=== PATIENT | female | born 1955 | race American Indian/Alaskan Native ===

== ENCOUNTER 2017-01-21 22:25 | Emergency (ER) | payer BC ==
--- NOTE | 2017-01-22 02:12 | Emergency Department Report ---
- General Chief complaint: Skin Rash Stated complaint: FACIAL RASH Time Seen by Provider: 01/22/17 01:59 Source: patient Mode of arrival: Ambulatory Limitations: No Limitations - History of Present Illness Initial comments: This is a 61-year-old female nontoxic, well nourished in appearance, no acute signs of distress that presents to the ED complaining of facial rash and back 2 weeks. Associated symptoms includes itching. Patient also complains of a boil to back 3 weeks. Patient denies any pus, drainage, fever, chills, stiff neck, abnormal gait, headache, nausea, vomiting, chest pain or shortness of breath. Stated rash has occurred so she took lisinopril and has been seen with her primary care doctor that prescribed hydrocortisone cream with no relief. Patient states allergies to ibuprofen and lisinopril. History of hypertension. MD complaint: abscess/boil -: Gradual, week(s) (3) Tetanus Up to Date: unsure Location: back Severity scale (0 -10): 0 Consistency: constant Improves with: none Worsens with: none Context: none Associated symptoms: denies other symptoms Treatments Prior to Arrival: OTC topical medication (hydrocortisone) - Related Data Previous Rx's Medication Instructions Recorded Last Taken Type Acetaminophen [Tylenol Arthritis] 650 mg PO Q6H #20 tablet.er 01/22/17 Unknown Rx Sulfamethoxazole/Trimethoprim 1 each PO BID #14 tablet 01/22/17 Unknown Rx [Bactrim DS TAB] Allergies Allergy/AdvReac Type Severity Reaction Status Date / Time ibuprofen [From Motrin] Allergy Angioedema Verified 01/21/17 23:54 lisinopril Allergy Angioedema Verified 01/21/17 23:53 Abscess Boil HPI - HPI Chief Complaint: Skin Rash Stated Complaint: FACIAL RASH Time Seen by Provider: 01/22/17 01:59 Home Medications: Previous Rx's Medication Instructions Recorded Last Taken Type Acetaminophen [Tylenol Arthritis] 650 mg PO Q6H #20 tablet.er 01/22/17 Unknown Rx Sulfamethoxazole/Trimethoprim 1 each PO BID #14 tablet 01/22/17 Unknown Rx [Bactrim DS TAB] Allergies/Adverse Reactions: Allergies Allergy/AdvReac Type Severity Reaction Status Date / Time ibuprofen [From Motrin] Allergy Angioedema Verified 01/21/17 23:54 lisinopril Allergy Angioedema Verified 01/21/17 23:53 ED Review of Systems ROS: Stated complaint: FACIAL RASH Other details as noted in HPI Constitutional: denies: chills, fever Eyes: denies: eye pain, eye discharge, vision change ENT: denies: ear pain, throat pain Respiratory: denies: cough, shortness of breath, wheezing Cardiovascular: denies: chest pain, palpitations Endocrine: no symptoms reported Gastrointestinal: denies: abdominal pain, nausea, diarrhea Genitourinary: denies: urgency, dysuria, discharge Musculoskeletal: denies: back pain, joint swelling, arthralgia Skin: rash, pruritus. denies: lesions Neurological: denies: headache, weakness, paresthesias Psychiatric: denies: anxiety, depression Hematological/Lymphatic: denies: easy bleeding, easy bruising ED Past Medical Hx - Past Medical History Previous Medical History?: Yes Hx Hypertension: Yes - Surgical History Past Surgical History?: No - Social History Smoking Status: Current Every Day Smoker Substance Use Type: None - Medications Home Medications: Home Medications Medication Instructions Recorded Confirmed Last Taken Type Acetaminophen [Tylenol Arthritis] 650 mg PO Q6H #20 tablet.er 01/22/17 Unknown Rx Sulfamethoxazole/Trimethoprim 1 each PO BID #14 tablet 01/22/17 Unknown Rx [Bactrim DS TAB] ED Physical Exam - General Limitations: No Limitations General appearance: alert, in no apparent distress - Head Head exam: Present: atraumatic, normocephalic, normal inspection - Eye Eye exam: Present: normal appearance, PERRL, EOMI. Absent: scleral icterus, conjunctival injection, nystagmus, periorbital swelling, periorbital tenderness Pupils: Present: normal accommodation - ENT ENT exam: Present: normal exam, normal orophraynx, mucous membranes moist, TM's normal bilaterally, normal external ear exam - Neck Neck exam: Present: normal inspection, full ROM. Absent: tenderness, meningismus, lymphadenopathy, thyromegaly - Respiratory Respiratory exam: Present: normal lung sounds bilaterally. Absent: respiratory distress, wheezes, rales, rhonchi, stridor, chest wall tenderness, accessory muscle use, decreased breath sounds, prolonged expiratory - Cardiovascular Cardiovascular Exam: Present: regular rate, normal rhythm, normal heart sounds. Absent: bradycardia, tachycardia, irregular rhythm, systolic murmur, diastolic murmur, rubs, gallop - GI/Abdominal GI/Abdominal exam: Present: soft, normal bowel sounds. Absent: distended, tenderness, guarding, rebound, rigid, diminished bowel sounds - Rectal Rectal exam: Present: deferred - Extremities Exam Extremities exam: Present: normal inspection, full ROM, normal capillary refill. Absent: tenderness, pedal edema, joint swelling, calf tenderness - Back Exam Back exam: Present: normal inspection, full ROM, other (6 cm x 6 cm boil noted to the right back region. Positive induration. Positive fluctuance. No posterior drainage is noted. Nontender to touch. No surrounding cellulitis noted.). Absent: tenderness, CVA tenderness (R), CVA tenderness (L), muscle spasm, paraspinal tenderness, vertebral tenderness, rash noted - Neurological Exam Neurological exam: Present: alert, oriented X3, CN II-XII intact, normal gait, reflexes normal - Psychiatric Psychiatric exam: Present: normal affect, normal mood - Skin Skin exam: Present: warm, dry, intact, normal color, rash. Absent: cyanosis, diaphoretic, erythema - Expanded Skin Exam Expanded Type of lesion: Present: rash Distribution of rash: face Description of rash: Present: erythematous, macular, papular, urticarial. Absent: vesicular, blisters, confluent, bullous, petechial, purpuic, crusting, discharge, fluctuant, indurated 1 - Abscess ED Course Vital Signs 01/21/17 23:54 Temperature 99.2 F Pulse Rate 95 H Respiratory 20 Rate Blood Pressure 179/96 O2 Sat by Pulse 100 Oximetry - Reevaluation(s) Reevaluation #1: 01/22/17 02:13 Patient is speaking full sentences with no signs of distress noted. - I & D Right Back Type of Procedure: Complex Site: right back Blade Size: 11 I & D Procedure: betadine prep, sterile drapes applied, sterile dressing applied Progress: Under sterile field, I used Betadine to cleanse the area. I then used 2% lidocaine with epi 1-200,000 with 25-gauge 5/8 needle to inject area for anesthetic purposes. Total volume injected 3 mL. I then used an 11 blade to make a 1 cm incision. About 40 mL of purulent drainage has been noted. I then used a hemostat to break the abscess formation. I then used sterile 0.9% normal saline flush to flush the wound with total volume of 40 mL used. I then put a 1/4 iodoform packing to the incision. A sterile 4 x 4 with tape has been applied as dressing. Bleeding is under control. Patient tolerated the procedure well with no signs of distress noted. Critical care attestation.: If time is entered above; I have spent that time in minutes in the direct care of this critically ill patient, excluding procedure time. ED Disposition Clinical Impression: Abscess Disposition: - TO HOME OR SELFCARE Is pt being admited?: No Does the pt Need Aspirin: No Condition: Stable Instructions: Sulfamethoxazole/Trimethoprim (By mouth), Abscess (ED) Additional Instructions: Follow-up with a primary care doctor in 3-5 days or symptoms worsen and continue return to emergency room. Return in 2 days to the emergency room to remove your packing and reassessment of the wound. Take full course of antibiotics that was prescribed. Prescriptions: Acetaminophen [Tylenol Arthritis] 650 mg PO Q6H #20 tablet.er Sulfamethoxazole/Trimethoprim [Bactrim DS TAB] 1 each PO BID #14 tablet Referrals: PRIMARY MD VIOLET [Referring] - 3-5 Days RAE ANDREWS MD [Staff Physician] - 3-5 Days [facility] [Outside] - 3-5 Days [facility] [Outside] - 3-5 Days Forms: Work/School Release Form(ED)
--- NOTE | 2017-01-22 03:08 | Ultrasound Report ---
FINAL REPORT PROCEDURE: US SOFT TISSUE HEAD AND NECK TECHNIQUE: HISTORY: swelling r/o abscess COMPARISON: No prior studies are available for comparison. FINDINGS: There is a complex subcutaneous mass in the midline of the upper back measuring 5 x 3 centimeters in diameter. This could be a hematoma or abscess. Tumor considered less likely. Percutaneous aspiration may be indicated. IMPRESSION: Subcutaneous mass suggesting abscess or hematoma.
[2017-01-22] MEDS ORDERED: XYLOCAINE 2%/ EPI 1:200,000 INFILTRATI ONE (03:12)
[2017-01-22] MEDS ORDERED: BOOSTRIX IM ONE (03:21)
[2017-01-22 06:03] VITALS: BP 162/80
== END 2017-01-22 05:15 | disposition home or self-care (01) ==
LOC: ED 22:25 → EEVIPCON 22:25 → ED 01-22 05:15
DX: L02.212 Cutaneous abscess of back [any part, except buttock and flank] (principal); Z88.6 Allergy status to analgesic agent; I10 Essential (primary) hypertension; F17.200 Nicotine dependence, unspecified, uncomplicated
CPT/HCPCS: 76536; 90471; 90715